=== PATIENT | male | born 1980 | race African-American/Black ===

== ENCOUNTER 2016-08-05 07:32 | Emergency (ER) ==
[2016-08-05 07:37] VITALS: BP 126/67
--- NOTE | 2016-08-05 07:51 | PROVIDER DOCUMENTATION ---
HPI-Respiratory General <Marcela Soriano - Last Filed: 08/05/16 09:00> - General Source: patient - History of Present Illness-Resp Quality of Pain: reports: aching Severity in ED: reports: mild Onset/Duration: reports: 3 days ago Timing: reports: still present Context: reports: recent URI Cough Quality/Degree: reports: productive cough Current Respiratory Medication Therapy: Initiated none Modifying Factors: improves with: nothing Associated Symptoms: reports: cough, flu-like symptoms, muscle/bodyaches Similar Symptoms Previously?: Yes Recently seen or treated by another doctor?: No <Edgar Joyce - Last Filed: 08/05/16 09:04> - General Chief Complaint: Cold Symptoms Stated Complaint: COLD SX Time Seen by Provider: 08/05/16 07:47 Allergies/Adverse Reactions: Patient Allergies Allergy/AdvReac Type Severity Reaction Status Date / Time No Known Allergies Allergy Verified 04/05/16 21:11 Home Medications: Home Medication List Medication Instructions Recorded Confirmed Last Taken Type Amoxicillin 875 mg PO BID #20 tablet 08/05/16 Unknown Rx Guaifenesin/Codeine [Robitussin-AC] 10 ml PO Q4H PRN PRN #6 oz 08/05/16 Unknown Rx - History of Present Illness-Resp Nature of Presenting Problem: sick 3 days cough mucus garbbled speech aching achilles tendon (Edgar Joyce) Review of Systems - Adult - REVIEW OF SYSTEMS - ADULT Constitutional: reports: chills, fever Eyes: reports: no symptoms reported Ears, Nose, Mouth & Throat: reports: hoarseness, throat pain, throat swelling Cardiovascular: reports: no symptoms reported Respiratory: reports: cough, wheezing Gastrointestinal: reports: no symptoms reported Genitourinary: reports: no symptoms reported Musculoskeletal: reports: muscle aches Integumentary: reports: no symptoms reported Neurological: reports: no symptoms reported Endocrine: reports: no symptoms reported Hematologic/Lymphatic: reports: no symptoms reported Allergic/Immunologic: reports: no symptoms reported <Edgar Joyce - Last Filed: 08/05/16 09:04> Past History - Adult - SOCIAL HISTORY Smoking: cigarettes Provider spent 3-5 mins advising pt. on dangers of tobacco.: Discussed manners to quit use, and f/u contacts for add'l counseling. <Marcela Soriano - Last Filed: 08/05/16 09:00> - PAST MEDICAL HISTORY-ADULT Review of Records: reports: Nursing Assessment Review, Medications Reviewed, Social history reviewed & non-contributory. Major Childhood Illnesses: reports: denies history Cardiovascular: reports: denies history Respiratory: reports: denies history Gastrointestinal: reports: denies history Obstetrical/Gynecological: reports: denies history Genitourinary: reports: denies history Musculoskeletal: reports: denies history Neurological: reports: denies history Endocrine/Immune: reports: denies history Sickle Cell Genotype:: Other (Sickle cell trait.) Other Conditions: reports: denies history - PRIOR SURGERIES/PROCEDURES Surgical/Procedure History: reports: hernia repair - IMMUNIZATION STATUS Childhood Immunizations: See Nurse Assessment Flu Vaccine: See Nurse Assessment - FAMILY HISTORY Family History: reviewed, not pertinent <Edgar Joyce - Last Filed: 08/05/16 09:04> Physical Exam-General - PHYSICAL EXAM-ADULT Initial Vital Signs Reviewed: Yes - CONSTITUTIONAL General Appearance: appears well, alert, no apparent distress - EYES Eyes: PERRL/EOMI - HEAD, EARS, NOSE, MOUTH & THROAT HENMT: normocephalic/atraumatic, TMs normal, pharynx normal - NECK Neck: supple - RESPIRATORY Respiratory: lungs clear - CARDIOVASCULAR Cardiovascular: regular rate, rhythm - GASTROINTESTINAL (ABDOMEN) Abdominal Exam: soft - LYMPHATIC Lymphatic: no adenopathy - MUSCULOSKELETAL Back Exam: normal inspection Extremity: normal range of motion - SKIN Integumentary: normal color, normal turgor - NEUROLOGIC Neurologic: grossly normal - PSYCHIATRIC Psych/Mental Status: oriented x 3 <Edgar Joyce - Last Filed: 08/05/16 09:04> Progress - XRAY 1 XRAY Study: Chest Impression: Normal (negative, per Dr. Joyce) <Marcela Soriano - Last Filed: 08/05/16 09:00> <Edgar Joyce - Last Filed: 08/05/16 09:04> - PLAN OF CARE/RESULTS Progress/Plan/Lab Results: Vital Signs Temp Pulse Resp BP Pulse Ox 08/05/16 07:35 98.5 F 82 18 126/67 100 No Known Allergies Allergy (Verified 04/05/16 21:11) No Home Medications 04/05/16 Laboratory 08/05/16 08/05/1617 07:55 07:34 07:34 WBC 7.50 RBC 4.64 L Hgb 14.1 Hct 41.7 L MCV 89.9 MCH 30.4 MCHC 33.8 RDW Std Deviation 12.0 Plt Count 239 MPV 9.3 Immature Gran % (Auto) 0.0 Neut % (Auto) 77.8 H Lymph % (Auto) 12.5 L Piatt % (Auto) 8.9 Eos % (Auto) 0.7 Baso % (Auto) 0.1 Immature Gran # (Auto) 0.00 Neut # (Auto) 5.83 Lymph # (Auto) 0.94 L Piatt # (Auto) 0.67 H Eos # (Auto) 0.05 Baso # (Auto) 0.01 Influenza A (Rapid) NEGATIVE Influenza B (Rapid) NEGATIVE Group A Strep Rapid NEGATIVE Orders Category Date Time Status CHEST-2 VIEWS [RAD] Stat Exams 08/05/16 07:47 Taken CBC WITH DIFF [HEME] Stat Lab 08/05/16 07:[address] Stat Lab 08/05/16 07:[address] Stat Lab 08/05/16 07:34 Completed (Marcela Soriano) Laboratory Tests 08/05/16 08/05/16 08/05/16 07:34 07:34 07:55 WBC 7.50 RBC 4.64 L Hgb 14.1 Hct 41.7 L MCV 89.9 MCH 30.4 MCHC 33.8 RDW Std Deviation 12.0 Plt Count 239 MPV 9.3 Immature Gran % (Auto) 0.0 Neut % (Auto) 77.8 H Lymph % (Auto) 12.5 L Piatt % (Auto) 8.9 Eos % (Auto) 0.7 Baso % (Auto) 0.1 Immature Gran # (Auto) 0.00 Neut # (Auto) 5.83 Lymph # (Auto) 0.94 L Piatt # (Auto) 0.67 H Eos # (Auto) 0.05 Baso # (Auto) 0.01 Influenza A (Rapid) NEGATIVE Influenza B (Rapid) NEGATIVE Group A Strep Rapid NEGATIVE (Edgar Joyce) Departure - Departure Time of Disposition Order: 09:01 Certified Medical Emergency: Emergent <Marcela Soriano - Last Filed: 08/05/16 09:00> - Departure Time of Disposition Order: 09:03 <Edgar Joyce - Last Filed: 08/05/16 09:04> - Departure DIAGNOSIS: Acute bronchitis Qualifiers: Bronchitis organism: unspecified organism Qualified Code(s): J20.9 - Acute bronchitis, unspecified Disposition: HOME 01 Condition: Stable Additional Instructions: ED Follow Up Instructions: You have been treated by a care provider in the Emergency Department. These instructions are being provided to you so you can have an understanding of how to care for yourself upon discharge. Upon discharge from the Emergency Department, you are responsible for making arrangements for follow-up care by a physician of your choice. Take all prescribed medications as directed. Return to the Emergency Department immediately for any new or worsening symptoms. You may call the Physician Referral phone number at [phone] to obtain a list of Physicians who are taking new patients. Prescriptions: Guaifenesin/Codeine [Robitussin-AC] 10 ml PO Q4H PRN PRN #6 oz PRN Reason: Cough Amoxicillin 875 mg PO BID #20 tablet Referrals: Kaela Link CRNP [Primary Care Provider] - Physician Attestation
[2016-08-05 08:01] LABS: MANUAL DIFF NEEDED? NO
[2016-08-05 08:27] LABS: BASO% 0.1 % (0.0-0.8); EOS# 0.05 X1000 (0.0-0.7); EOS% 0.7 % (0.0-10.0); HEMATOCRIT 41.7 % (42.0-52.0); HEMOGLOBIN 14.1 g/dL (14.0-18.0); LYMPH# 0.94 X1000 (1.2-3.4); LYMPH% 12.5 % (20.5-51.1); MCH 30.4 PG (27-31); MCHC 33.8 g/dL (33-37); MCV 89.9 FL (81-99); MONO# 0.67 X1000 (0.11-0.59); MONO% 8.9 % (1.7-9.3); MPV 9.3 FL (7.4-10.4); NEUT% 77.8 % (42.2-75.2); PLT 239 X1000 (130-400); RBC 4.64 XMIL (4.7-6.1)
--- NOTE | 2016-08-05 11:37 | Diag Imaging Result Document ---
PROCEDURE NAME: CHEST-2 VIEWS - 08/05/2016 PA AND LATERAL RADIOGRAPH OF THE CHEST: COMPARISON: 12/14/2015. FINDINGS: The lungs are grossly clear. There is no discrete pleural fluid collection or evidence of pneumothorax. The cardiomediastinal silhouette and upper airway are grossly unremarkable. IMPRESSION: No evidence of acute chest pathology.
== END 2016-08-05 09:15 | disposition home or self-care (01) ==
LOC: P.ED 07:32
DX: J20.9 Acute bronchitis, unspecified (principal); R05 Cough; R09.3 Abnormal sputum; M79.1 Myalgia; R50.9 Fever, unspecified; R49.0 Dysphonia; J02.9 Acute pharyngitis, unspecified; R22.1 Localized swelling, mass and lump, neck; R06.2 Wheezing; F17.210 Nicotine dependence, cigarettes, uncomplicated; Z71.6 Tobacco abuse counseling; D57.3 Sickle-cell trait
CPT/HCPCS: 71020; 85025; 87081; 87430; 87804; 99283